=== PATIENT | male | born 1945 | race Caucasian/White ===

== ENCOUNTER 2021-05-02 15:42 | Emergency (ER) | payer OTHER, MEDICARE ==
[~2021-05-02] VITALS: Ht 182.9 cm; Wt 108.9 kg
[2021-05-02] MEDS ORDERED: ZESTRIL20 MG PO (16:00)
== END 2021-05-02 18:22 | disposition home or self-care (01) ==
LOC: ED 15:42
DX: S02.2XXA Fracture of nasal bones, initial encounter for closed fracture (principal); R04.0 Epistaxis; V80.010A Animal-rider injured by fall from or being thrown from horse in noncollision accident, initial encounter; Z88.8 Allergy status to other drugs, medicaments and biological substances; Z88.5 Allergy status to narcotic agent; Z79.899 Other long term (current) drug therapy
CPT/HCPCS: 70450; 70486; 71260; 72125; 74177; 80053; 82150; 82550; 83605; 83690; 85025; 99284-25